=== PATIENT | male | born 1950 | race Caucasian/White ===

== ENCOUNTER → 2016-06-07 | Outpatient (CLI) | payer MEDICARE ==
[~2016-06-07] MED LIST: IOHEXOL 240 MG/ML 50ML VIAL. PO ONE; IOHEXOL 300 MG/ML 75 ML VIAL IV ONE
[2016-06-07 07:36] LABS: CREATININE 1.1 mg/dL (0.7-1.3); GFR 66.8
--- NOTE | 2016-06-07 15:07 | RAD ---
PQRS Compliance Statement: One or more of the following individualized dose reduction techniques were utilized for this examination: 1. Automated exposure control 2. Adjustment of the mA and/or kV according to patient size 3. Use of iterative reconstruction technique CT of the chest, abdomen and pelvis with contrast, 06/07/2016: History: Weight loss, shortness of breath, neutrophilia Multidetector CT imaging was performed following oral and IV administration of contrast. There are emphysematous changes in the lungs with scattered linear parenchymal scars. Several small peripheral opacities are noted in the right upper lobe. These include small areas of tree-in-bud type opacity in the lateral aspect of the right upper lobe on images 20 and 24 of series #2. There is a minimal focus of groundglass and linear opacity in the posterior aspect of the right upper lobe on image 14 of series #2. No pulmonary mass is seen. There is no evidence of pleural fluid. There is mild calcific plaquing of the thoracic aorta without evidence of aneurysm. There are mild scattered coronary calcifications. The heart is not enlarged. There is a subcarinal and a right hilar lymph node, both of which are borderline size. No hepatic abnormality is detected. The gallbladder is unremarkable. The pancreatic duct is slightly prominent. No pancreatic mass is seen. The spleen is of normal size. Calcifications in the renal hilar regions are probably vascular. The kidneys show no evidence of obstruction or mass. There is moderate aortoiliac calcific plaquing without evidence of aneurysm. No abdominal or pelvic adenopathy is seen. There is mild diffuse bladder wall thickening. The bowel loops are not dilated. There is a moderate amount of stool scattered throughout the colon. No free fluid is evident in the abdomen or pelvis. IMPRESSION: 1. Emphysema with parenchymal scarring. 2. Several small peripheral opacities in the right upper lobe may represent foci of inflammation, scarring or small airway disease. Given the patient's smoking history, CT follow-up is suggested to establish stability. 3. Right hilar and subcarinal lymph nodes of borderline size. 4. Moderate atherosclerosis of the aorta and its branches including the coronary arteries. 5. Mild diffuse bladder wall thickening suggesting chronic bilateral leg obstruction versus cystitis.
== END | disposition home or self-care (01) ==
LOC: CT 07:01
PROVIDERS: ATTEND Internal Medicine Hematology & Oncology
DX: D72.9 Disorder of white blood cells, unspecified (principal); R63.8 Other symptoms and signs concerning food and fluid intake; R63.4 Abnormal weight loss; F17.200 Nicotine dependence, unspecified, uncomplicated; R06.02 Shortness of breath
CPT/HCPCS: 36415; 71260; 74177; 82565; Q9966; Q9967

== ENCOUNTER → 2016-10-04 | Outpatient (CLI) | payer MEDICARE ==
[~2016-10-04] MED LIST changes: +CONTRAST GIVEN MC PRN; -IOHEXOL 240 MG/ML 50ML VIAL. PO ONE
[2016-10-04 09:13] LABS: CREATININE 0.9 mg/dL (0.7-1.3); GFR 83.9
--- NOTE | 2016-10-04 10:29 | RAD ---
Indication: Abnormal CT on 06/07/2016. The study is performed for follow-up. Axial imaging through the chest was performed after the administration of intravenous contrast. Comparison is made with prior CT chest from 06/07/2016 No definite axillary lymphadenopathy is seen. Small lymph nodes in the mediastinum appear stable. No definite hilar lymphadenopathy is seen. No pericardial or pleural fluid is identified. Emphysematous changes throughout both lungs are again noted. Previously noted patchy peripheral density in the right upper lobe with questionable tree-in-bud opacity appears improved and nearly completely resolved. Small residual nodular density is present measuring 4 mm, image 26. There is an area of new patchy parenchymal density in the posterior right lower lobe consistent with minimal infiltrate or atelectasis. Left lung is clear. The upper abdomen is unremarkable. Impression: Overall improved appearance to the chest when compared with exam from 06/07/2016. Right upper lobe opacities have nearly completely resolved with only minimal residual nodularity present. There is some new minimal infiltrate or atelectasis in the right lower lobe. Additional follow-up with repeat CT chest in 6 months is recommended to show continued stability. PQRS Compliance Statement: One or more of the following individualized dose reduction techniques were utilized for this examination: 1. Automated exposure control 2. Adjustment of the mA and/or kV according to patient size 3. Use of iterative reconstruction technique
== END | disposition home or self-care (01) ==
LOC: CT 08:22
PROVIDERS: ATTEND Internal Medicine Hematology & Oncology
DX: E01.1 Iodine-deficiency related multinodular (endemic) goiter (principal); F17.200 Nicotine dependence, unspecified, uncomplicated
CPT/HCPCS: 36415; 71260; 82565; Q9967

== ENCOUNTER → 2017-04-13 | Outpatient (CLI) | payer MEDICARE | END | disposition home or self-care (01) | LOC: CT 09:17 | DX: J47.9 Bronchiectasis, uncomplicated (principal); R91.8 Other nonspecific abnormal finding of lung field; K44.9 Diaphragmatic hernia without obstruction or gangrene; I25.10 Atherosclerotic heart disease of native coronary artery without angina pectoris | CPT/HCPCS: 71250 ==

== ENCOUNTER → 2018-01-01 | Outpatient (CLI) | payer MEDICARE ==
[~2018-01-01] MED LIST changes: -CONTRAST GIVEN MC PRN; +IOHEXOL 300 MG/ML 100ML VIAL. IV ONE; -IOHEXOL 300 MG/ML 75 ML VIAL IV ONE
--- NOTE | 2018-01-01 16:25 | RAD ---
CT of the chest with contrast, 01/01/2018: HISTORY: Weight loss, pneumonia, COPD Multidetector CT imaging was performed following an IV bolus injection of iodinated contrast material. Comparison is made to a study from 04/13/2017. There are emphysematous changes in the lungs. Numerous small scattered pulmonary opacities have developed. These include a 1.8 cm spiculated mass in the right lower lobe. There are 2 smaller spiculated masses located just inferior to this first mass in the right lower lobe. There are 1.8 and 1.9 cm more elongated opacities in the inferior lingula on the left. There are numerous other smaller predominantly irregular nodular opacities in both lungs. No pleural fluid is evident. There is moderate calcific plaquing of the thoracic aorta and its branches without evidence of aneurysm. Moderate coronary artery calcifications are present. The heart is not enlarged. There are multiple small mediastinal lymph nodes. They are larger than on 04/13/2017 study, however, they do not demonstrate definite pathologic enlargement. There is a lymph node of borderline size along the superior aspect of the right hilum. IMPRESSION: 1. Emphysema. 2. Multiple bilateral irregular pulmonary nodules have developed. Diagnostic considerations include metastatic disease, septic emboli, atypical infection such as fungal disease, cryptogenic organizing pneumonia or drug toxicity. 3. Moderate coronary artery calcifications. PQRS Compliance Statement: One or more of the following individualized dose reduction techniques were utilized for this examination: 1. Automated exposure control 2. Adjustment of the mA and/or kV according to patient size 3. Use of iterative reconstruction technique Electronically signed by: David Merlos MD (01/01/2018 4:22 PM) [facility]
== END | disposition home or self-care (01) ==
LOC: CT 09:37
DX: J43.9 Emphysema, unspecified (principal); I25.10 Atherosclerotic heart disease of native coronary artery without angina pectoris; I76 Septic arterial embolism; R91.8 Other nonspecific abnormal finding of lung field; Z87.891 Personal history of nicotine dependence
CPT/HCPCS: 71260; Q9967

== ENCOUNTER → 2018-01-25 | Outpatient (CLI) | payer MEDICARE ==
--- NOTE | 2018-01-25 14:28 | RAD ---
CT of the chest without contrast, 01/25/2018: HISTORY: Follow-up lung lesions Noncontrast scans were obtained and compared to a study from 01/01/2018. Emphysematous changes are present in the lungs with scattered parenchymal scars. The previously seen patchy bilateral pulmonary opacities have regressed. For example a spiculated density seen in the right lower lobe on image 46 of series #2 of the current exam demonstrates a solid component measuring 1.3 cm. On the previous study the solid component measured approximately 1.9 cm. A cluster of 2 irregular parenchymal opacities in the inferior lingula seen on the previous study have also regressed. The more superior of these demonstrates a solid component measuring approximately 1.4 cm compared to a measurement of 1.7 on the previous study. Additional scattered tiny tree-in-bud type opacities are stable to slightly improved. No new or enlarging pulmonary lesions are seen. There is moderate calcific plaquing of the thoracic aorta and its branches without evidence of aneurysm. Moderate coronary artery calcifications are present. The heart is not enlarged. Small scattered mediastinal lymph nodes have generally decreased in size. No mediastinal adenopathy is evident. There is a suggestion of a small hiatal hernia. No pleural fluid is present. IMPRESSION: 1. Emphysema with parenchymal scarring. 2. Scattered irregular pulmonary lesions and tree-in-bud opacities have generally improved since 01/01/2018, suggesting an infectious or inflammatory etiology. 3. Moderate coronary artery disease. Electronically signed by: David Merlos MD (01/25/2018 2:25 PM) [facility]
== END | disposition home or self-care (01) ==
LOC: CT 10:07
PROVIDERS: ATTEND Internal Medicine Critical Care Medicine
DX: J43.8 Other emphysema (principal); I25.10 Atherosclerotic heart disease of native coronary artery without angina pectoris; J98.4 Other disorders of lung
CPT/HCPCS: 71250

== ENCOUNTER → 2018-04-19 | Outpatient (CLI) | payer MEDICARE ==
--- NOTE | 2018-04-19 16:37 | RAD ---
CT of the chest without contrast, 04/19/2018: HISTORY: Follow-up pulmonary opacities, shortness of breath Noncontrast scans were obtained and compared to a study from 01/25/2018. Emphysematous changes are present in the lungs with scattered parenchymal scars. Streaky parenchymal opacities in the lingula have improved slightly. A small nodule seen in the posterior left lung base has markedly decreased in size. A small subpleural nodule in the lateral aspect of the left lower lobe has also markedly decreased in size with only small residual peripheral opacity seen on image 219 of series #5. A spiculated density seen in the right lower lobe on the previous study has nearly completely resolved with only minimal residual opacity evident on image 251 of series #5. Several other small bilateral parenchymal opacities have also regressed. No new or enlarging pulmonary densities are seen. There is no evidence of pleural fluid. There is calcific plaquing of the aorta and its branches without evidence of aneurysm. Moderate coronary artery calcifications are present. The heart is not enlarged. There is no mediastinal adenopathy. A small hiatal hernia is present. IMPRESSION: 1. Emphysema with parenchymal scarring. 2. Further regression of the bilateral pulmonary lesions compatible with a resolving inflammatory/infectious process 3. No new pulmonary abnormality is detected. 4. Small hiatal hernia. 5. Moderate coronary artery disease. PQRS Compliance Statement: One or more of the following individualized dose reduction techniques were utilized for this examination: 1. Automated exposure control 2. Adjustment of the mA and/or kV according to patient size 3. Use of iterative reconstruction technique Electronically signed by: David Merlos MD (04/19/2018 4:33 PM) [facility]
== END | disposition home or self-care (01) ==
LOC: CT 15:05
PROVIDERS: ATTEND Internal Medicine Pulmonary Disease
DX: J43.8 Other emphysema (principal); J98.4 Other disorders of lung; I25.10 Atherosclerotic heart disease of native coronary artery without angina pectoris; K44.9 Diaphragmatic hernia without obstruction or gangrene
CPT/HCPCS: 71250